=== PATIENT | female | born 1990 | race Caucasian/White ===

== ENCOUNTER 2025-09-18 07:36 | Inpatient (IN) ==
[2025-09-18] MEDS ORDERED: LIDOCAINE 1% LOCAL 20 ML VIAL INFIL PRN (08:07)
[2025-09-18] MEDS ORDERED: OXYTOCIN 30 UNITS/NSS 30 UNITS/500 ML BAG IV PRN ×3 (08:07→16:47)
[2025-09-18] MEDS ORDERED: CALCIUM CARBONATE 500 MG CHEWABLE TAB PO PRN (08:07)
[2025-09-18 08:47] LABS: Hematocrit (blood only) 40.1 % (37.0-47.0); Hemoglobin 13.4 g/dL (12.0-16.0); Mean Corpuscular Hemoglobin 27.8 pg (25.0-34.0); Mean Corpuscular Volume 83.2 fL (80.0-100.0); Platelet Count 183 K/uL (130-400); RDW Standard Deviation 43.2 fL (36.4-46.3); Red Blood Count 4.82 M/uL (4.20-5.40); White Blood Count 8.94 K/ul (4.8-10.8)
--- NOTE | 2025-09-18 08:58 | History & Physical Report ---
"Date of Service September 18, 2025 Assessment & Plan (1) 39 weeks gestation of : Plan Pitocin Monitor tracing, category 1 Admission and Anticipated Discharge Date Admission Date: September 18, 2025 History of Present Illness Chief Complaint: IOL Primary Care Provider: LUIS PCP 39w1d confirmed via LMP. Here for induction of labor. No complications with this . Has been attending OB appointments regularly. Currently taking no medications other than daily vitamin. Contractions: intermittently, irregular Fluid or Blood loss: clear SROM, no blood loss Movement: active Labs - Blood type: O+ - Antibody screen: negative - H.4 (09/18/2025) - Hct: 40.1 (09/18/2025) - Wbc: 8.94 (09/18/2025) - Plt: 183 (09/18/2025) - Rubella: immune - VDRL/RPR: negative - Gonorrhea: not detected - Chlamydia: not detected - HIV: negative - HbSAg: negative - GBS: negative - Glucose tolerance x 2 Allergies Allergy/AdvReac Type Severity Reaction Status Date / Time flu vaccine Allergy Fever Uncoded 09/17/25 09:07 Home Medications Medication Instructions Recorded Confirmed Type prenat.vits,akua,yej-zboq-kjjfm tab PO 06/20/25 09/17/25 History Patient History Surgical History History of salpingectomy left S/P wisdom tooth extraction Family History Mother Fkqyl-7-srnqaexmceo deficiency Malignant tumor of cervix Father Diabetes Grandmother (Maternal) Wqnqv-2-yowfrgvftky deficiency Endometrial carcinoma Grandfather (Paternal) Myocardial infarction Stroke Grandfather (Maternal) Malignant neoplasm of brain Other Ovarian cancer Social History Smoking Status: Never smoker Second Hand Exposure: No; Do You Dip or Chew Tobacco: No; Tobacco Cessation Education Requested by Patient: No Hx Alcohol Use: No Hx Substance Use: No Preferred Language: Palauan Communication Ability: Effective 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 Beliefs That Will Affect Care: None marital status: marital status details: Tai [phone] Current Living Situation: Spouse Current Living Situation Comment: spouse and 2 kids current occupational status: unemployed Feels Safe at Home: Yes Safety Concerns: Feels Safe At This Time Assistive Devices: None OB History : 4 Full term: 2 Premature: 0 Total Number of Induced Abortions: 0 Total Number of Spontaneous Abortions: 0 Ectopics: 1 Multiple births: 0 Number of Living Children: 2 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 Details: Last pap 04/19/24 in [facility] [place] Review of Systems All systems reviewed & are unremarkable except as noted in HPI & below Physical Exam Physical Exam: General: patient resting comfortably, NAD, non-toxic in appearance, AA&O x 4, answers questions appropriately. Skin: warm, dry, intact HEENT: NC/AT, anicteric sclera, conjunctiva without injection, moist mucus membranes Heart: +S1/S2, regular, no m/r/g Lungs: equal air entry bilaterally, no rales/rhonchi/wheezes Abd: +BS, soft, NT/ND, gravid uterus Cervical: 4.5|50|-2|, soft and posterior, estimated weight 7-8 lbs Ext: warm, no clubbing/cyanosis or edema Neuro: nonfocal, patient AA&O x 4, speech intact, no facial droop, moving all extremities on command. FHR: baseline 140, moderate variability, accelerations present, decelerations absent Results & Data Vital Signs (Past 12 Hours) Vital Signs Temp Pulse Resp BP 09/18/25 07:58 92 H 120/76 09/18/25 07:47 37 C 18 Laboratory Results OB Labs: Hgb 12.4 g/dl (12.0-16.0) 07/04/25 Hct 37.5 % (37.0-47.0) 07/04/25 Treponema pallidum Ab Negative (Negative) 07/04/25 Glucose 1 Hr 50 gm 129 mg/dl (70-130) 07/04/25 OB Optional Labs: No Data to Display Labs Reviewed: Initial OB Labs (03/14/25) Blood Type & RH O positive Antibody ScreenNegative HCT/HGB44.5/15.0 [id number] Hep C IgG 13yrs+ OldNegative Pap Test04/23/24 (note states Negative, no report) ChlamydiaNegative GonorrheaNegative RubellaImmune RPRNon Reactive Urine Culture/ScreenNo Growth HBsAgNon Reactive HIVNon Reactie MCV89.5 Resident Activity Tracking Resident Involvement: Resident Care Provided Care Provided: OB Delivery"
[2025-09-18] MEDS: LACTATED RINGER'S 1,000 ML IV PRN (09:43)
[2025-09-18] MEDS ORDERED: BUPIVACAINE 0.25% PF 30 ML VIAL EPI PRN (10:36)
[2025-09-18] MEDS ORDERED: LIDOCAINE 2% MPF LOCAL 5 ML VIAL EPI PRN (10:36)
[2025-09-18] MEDS ORDERED: NALBUPHINE HCL INJ 10 MG/ML AMP IV PRN (10:36)
[2025-09-18] MEDS ORDERED: NALOXONE HCL 0.4 MG/1 ML VIAL/CARP IV PRN (10:36)
[2025-09-18] MEDS ORDERED: ROPIVACAINE 0.5% PF 5 MG/ML 20 ML VIAL EPI PRN (10:36)
[2025-09-18] MEDS ORDERED: NALOXONE HCL 1 MG in SODIUM CHLORIDE 0.9% 1,000 ML IV PRN (10:36)
[2025-09-18] MEDS ORDERED: SODIUM CHLORIDE 0.9% PF INJ 10 ML VIAL EPI PRN (10:36)
[2025-09-18] MEDS ORDERED: diphenhydrAMINE 50 MG/ML VIAL IV PRN (10:36)
--- NOTE | 2025-09-18 10:39 | Anesthesiology Consultation ---
Date of Service September 18, 2025 Assessment & Plan Chart Review Chart Review: Patient NOT seen in Pre Admission Testing and Acceptable Risk for Labor Epidural Consults Requested none ASA ASA2 Proposed Anesthesia Anesthesia Type: Labor Epidural Risk / Benefits Reviewed With: PT / POA / Parent / Guardian, Accepts Plan and Informed Consent Obtained History Height/Weight Height: 5 ft 3 in Weight: 94.256 kg Allergies Allergy/AdvReac Type Severity Reaction Status Date / Time flu vaccine Allergy Fever Uncoded 09/17/25 09:07 Medications Home Medications Medication Instructions Recorded Confirmed Last Taken prenat.vits,akua,yij-twbc-fvpfb tab PO 06/20/25 09/17/25 09/14/25 08:00 Active Medications Generic Name Dose Route Start Last Admin Trade Name Freq PRN Reason Stop Dose Admin Fentanyl/Bupivacaine/Sodium Chlor 100 ml 09/18/25 10:36 09/18/25 11:04 Fentanyl 2 Mcg/Ml Bupivacaine 0.125%-Nss 100ml Bag EPI 09/19/25 10:35 100 ml PRN PRN Administration Pain R/T Labor Protocol Lactated Ringer's 1,000 mls @ 125 mls/hr 09/18/25 08:07 09/18/25 09:43 Lr IV 09/20/25 08:06 125 mls/hr .Q8H PRN Administration L&D Protocol Protocol NPO Date Last Intake of Fluids: 09/18/25 Time Last Intake of Fluids: 10:00 Date Last Intake of Solids: 09/17/25 Time Last Intake of Solids: 18:00 Exercise / Class Metabolic Activity 1 > 8 Run/Swim/Ski/Tennis Past Family History Family History Mother Pxcov-6-zawtcvmjtbk deficiency Malignant tumor of cervix Father Diabetes Grandmother (Maternal) Arpfx-1-tbimqjqeqhn deficiency Endometrial carcinoma Grandfather (Paternal) Myocardial infarction Stroke Grandfather (Maternal) Malignant neoplasm of brain Other Ovarian cancer Past Surgical History Surgical History History of salpingectomy left S/P wisdom tooth extraction Past Anesthesia History No Hx of Anesthesia Complications and No Family Hx of Anesthesia Complications History of PONV No Hx of PONV and No Hx of Motion Sickness Social History Smoking Status: Never smoker Do You Dip or Chew Tobacco: No Hx Alcohol Use: No Hx Substance Use: No substance use type: does not use Review of Systems ROS Unobtainable: All systems reviewed & are unremarkable except as noted in HPI & below Physical Exam Vital Signs Last Vital Signs Temp 37 C 09/18/25 07:47 Pulse 107 H 09/18/25 10:33 Resp 18 09/18/25 07:47 BP 120/71 09/18/25 10:33 Pulse Ox 100 09/18/25 10:32 ENMT Mouth: no TMJ abnormality Thyromental Distance: > or= 3.5 Finger Breadths Mallampati Class: II Neck normal visual inspection and trachea midline; neck extension not limited Respiratory normal respiratory effort Auscultation: lungs clear to auscultation bilaterally Cardiovascular Rate/Rhythm: regular rate and regular rhythm Heart Sounds: no murmur Musculoskeletal Spine: normal cervical ROM Extremities: full ROM of extremities Neurologic moves all extremities Psychiatric Orientation: alert and oriented x 3 Testing Laboratory Results 09/18/25 08:34
[2025-09-18] MEDS: fentANYL 2 MCG/ML BUPIVacaine 0.125%-NSS 100ML BAG EPI PRN (11:04)
[2025-09-18] MEDS: BUPIVACAINE 0.25% PF 30 ML VIAL EPI STA (11:08)
[2025-09-18] MEDS: SODIUM CHLORIDE 0.9% PF INJ 10 ML VIAL EPI STA (11:08)
[2025-09-18] MEDS: fentANYL 2 MCG/ML BUPIVacaine 0.125%-NSS 100ML BAG ONE (11:09)
[2025-09-18] MEDS: BUPIVACAINE 0.25% PF 30 ML VIAL ONE (11:09)
[2025-09-18] MEDS: SODIUM CHLORIDE 0.9% PF INJ 10 ML VIAL ONE (11:09)
[2025-09-18] MEDS: LIDOCAINE 2%/EPINEPHRINE 1:200,000 20 ML PF EPI STA (11:09)
[2025-09-18] MEDS: LIDOCAINE 2%/EPINEPHRINE 1:200,000 20 ML PF ONE (11:10)
[2025-09-18] MEDS: OXYTOCIN 30 UNITS/NSS 30 UNITS/500 ML BAG IV PRN (14:22)
--- NOTE | 2025-09-18 16:18 | Delivery Summary ---
Vaginal Delivery Summary Date of Service September 18, 2025 Vaginal Delivery Summary DIAGNOSES: 1. Steiner intrauterine at 39w1d gestation. 2. Induction of Labor. 3. Group B Streptococcus Neg. PROCEDURE: Spontaneous vaginal delivery without laceration. SURGEON: Sarahy Geiger MD. TELECOMMUNICATIONS SALES REPRESENTATIVE: None. ESTIMATED BLOOD LOSS: 64 mL. COMPLICATIONS: None. PLACENTA: Spontaneous and intact with a 3-vessel cord. DISPOSITION: Stable to labor and delivery. DESCRIPTION: The patient pushed well and brought the head to in OA position. The infant's head was allowed to deliver with contraction force and no further active pushing, with the perineum protected during this time. There was one nuchal cord. The right shoulder was anterior. The shoulders and body delivered without any difficulty, and the was placed on the maternal abdomen. It was vigorous and moving all extremities, and making respiratory efforts. The cord was doubly clamped by the MD and then cut by the FOB. The placenta delivered spontaneously and was noted to be intact and with a 3VC. The cervix, vagina and perineum were examined and were found to be without defect requiring repair. The fundus was firm and lochia minimal immediately after delivery. [facility] [place] Vaginal Delivery Codes: 93895 global code for the antepartum, delivery, and post-
[2025-09-18] MEDS ORDERED: HYDROCORTISONE ACETATE 25 MG SUPP PR PRN (16:47)
[2025-09-18] MEDS ORDERED: BENZOCAINE 20% SPRY 85 APPLN/85 GM CAN EXT PRN (16:47)
--- NOTE | 2025-09-18 17:02 | Anesthesia Procedure Note ---
Date of Service September 18, 2025 Anesthesia Post Epidural Note Vital Signs Vital Signs: Temp Pulse Resp BP Pulse Ox 37.1 C 94 H 20 119/66 99 09/18/25 16:15 09/18/25 16:57 09/18/25 16:45 09/18/25 16:47 09/18/25 16:57 Pain Intensity Abdomen: Pain Intensity: 0 Notes Mental Status: alert / awake / arousable and participated in evaluation Nausea / Vomiting: adequately controlled Pain: adequately controlled Airway Patency, RR, SpO2: stable & adequate BP & HR: stable & adequate Hydration State: stable & adequate Neuraxial Anesthesia: was administered and sensory block is resolving Anesthetic Complications: no major complications apparent Epidural: Removed without complications and With tip intact
[2025-09-18] MEDS: IBUPROFEN 600 MG TAB PO PRN (17:21)
[2025-09-18] MEDS: ACETAMINOPHEN 325 MG TAB PO PRN (17:21)
[2025-09-18] MEDS: DOCUSATE SODIUM 100 MG CAP PO SCH (21:26)
[2025-09-19] MEDS: DIPHTHER/TETAN/PERTUS Vaccine (Tdap, Adol/Adult) 0.5mL IM ONE (00:11)
--- NOTE | 2025-09-19 05:58 | Obstetrical Progress Note ---
Date of Service September 19, 2025 Assessment & Plan (1) examination following vaginal delivery: Plan 34 yo post- day 1 s/p Feels well today. Vital signs stable Continue post- care Encourage ambulation and Pain controlled with ibuprofen Hgb stable Discharge home today, follow up with Dr. Geiger in 6 weeks. Admission and Anticipated Discharge Date Admission Date: September 18, 2025 Supervising Physician Co-Signing Physician Notes Resident Physician Supervision Note: I interviewed and examined the patient. Discussed with Dr. Galloway and agree with findings and plan as documented in the note. Any exceptions or clarifications are listed here: [ ] Documented By: Sarahy Geiger MD, FACOG, MSCP Subjective 34 yo post- day 1 s/p Ambulation: ambulating normally Voiding: no voiding problems Passing Gas:: Yes Passing Stool:: no Diet Tolerance:: regular diet Lochia:: Small Feeding Type:: bottle feeding Current Pain Level: 2/10 Resting comfortably this AM in NAD. Denies MEDRANO, CP, SOB, N/V/D, LE pain/swelling. Review of Systems Review of Systems: All systems reviewed & are unremarkable except as noted in HPI & below Physical Exam Physical Exam: General: patient resting comfortably, NAD, non-toxic in appearance, AA&O x 4, answers questions appropriately. Skin: warm, dry, intact HEENT: NC/AT, anicteric sclera, conjunctiva without injection, moist mucus membranes. Heart: +S1/S2, regular, no m/r/g Lungs: equal air entry bilaterally, no rales/rhonchi/wheezes Abd: +BS, soft, NT/ND, uterine fundus firm at umbilicus Ext: warm, no clubbing/cyanosis or edema, Oliver's neg. Neuro: nonfocal, patient AA&O x 4, speech intact, no facial droop, moving all extremities on command. Results & Data Vital Signs (Past 12 Hours) Vital Signs Temp Pulse Pulse Resp BP BP Pulse Ox 09/19/25 03:00 36.7 C 91 H 16 113/68 09/18/25 23:25 36.5 C 112 H 18 118/66 09/18/25 19:15 36.9 C 108 H 20 109/65 97 09/18/25 18:19 99 H 117/67 09/18/25 18:15 99 H 18 117/67 O2 Del Method 09/19/25 03:00 Room Air 09/18/25 23:25 Room Air 09/18/25 19:15 Room Air 09/18/25 18:19 09/18/25 18:15 Laboratory Results OB Labs: Hgb 12.4 g/dl (12.0-16.0) 07/04/25 Hct 37.5 % (37.0-47.0) 07/04/25 Treponema pallidum Ab Negative (Negative) 07/04/25 Glucose 1 Hr 50 gm 129 mg/dl (70-130) 07/04/25 OB Optional Labs: No Data to Display Labs Reviewed: Initial OB Labs (03/14/25) Blood Type & RH O positive Antibody ScreenNegative HCT/HGB44.5/15.0 [id number] Hep C IgG 13yrs+ OldNegative Pap Test04/23/24 (note states Negative, no report) ChlamydiaNegative GonorrheaNegative RubellaImmune RPRNon Reactive Urine Culture/ScreenNo Growth HBsAgNon Reactive HIVNon Reactie MCV89.5 Resident Activity Tracking Resident Involvement: Resident Care Provided Care Provided: OB Delivery
[2025-09-19 06:47] LABS: Hematocrit (blood only) 34.5 % (37.0-47.0); Hemoglobin 11.5 g/dL (12.0-16.0); Mean Corpuscular Hemoglobin 28.0 pg (25.0-34.0); Mean Corpuscular Volume 83.9 fL (80.0-100.0); Platelet Count 166 K/uL (130-400); RDW Standard Deviation 43.4 fL (36.4-46.3); Red Blood Count 4.11 M/uL (4.20-5.40); White Blood Count 9.69 K/ul (4.8-10.8)
[2025-09-19] MEDS: PRENATAL VITAMIN 1 TAB PO SCH (07:32)
[2025-09-19 10:16] VITALS: RESP 20; O2SAT 98
[2025-09-19 13:34] VITALS: BP 122/76; PULSE 110; TEMP 98.2
== END 2025-09-19 18:12 | disposition home or self-care (01) | DRG 807 ==
LOC: 4S1 07:36 → 4E2 18:45